=== PATIENT | female | born 2000 | race African-American/Black ===

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

== ENCOUNTER 2022-01-12 17:32 | Emergency (ER) | payer MEDICAID ==
[~2022-01-12] VITALS: Ht 162.6 cm; Wt 66.0 kg
[~2022-01-12 17:32] MED LIST: IBUP-2028 MT
[2022-01-12 17:35] VITALS: BP 105/62
[2022-01-12] MEDS ORDERED: METOCLOPRAMIDE HCL 10MG/2ML VIAL IV STA (18:24)
[2022-01-12] MEDS ORDERED: SODIUM CHLORIDE 0.9% 1,000 ML IV ONE (18:30)
[2022-01-12 19:09] LABS: CHLORIDE 108 mEq/L (98-107)
[2022-01-12 19:11] LABS: BASOPHILS % 0.4 % (0.0-2.0); EOSINOPHILS % 0.7 % (0.0-5.0); HEMATOCRIT. 40.3 % (36.0-48.0); HEMOGLOBIN. 13.3 g/dL (12.0-16.0); LYMPHOCYTES % 10.4 % (20.0-50.0); MEAN CORPUSCULAR HEMOGLOBIN 32.3 pg (28.0-32.0); MEAN CORPUSCULAR VOLUME 97.8 fL (81.0-99.0); MEAN PLATELET VOLUME 8.3 fl (7.4-10.4); MONOCYTES % 5.6 % (2.0-8.0); NEUTROPHILS % 82.9 % (40.0-76.0); PLATELET 255 x1000/uL (130-400); RED BLOOD CELL COUNT 4.12 mill/uL (4.2-5.4); RED CELL DISTRIBUTION WIDTH 12.8 % (11.6-14.6)
== END 2022-01-12 20:30 | disposition home or self-care (01) ==
LOC: ER 17:32
DX: R10.84 Generalized abdominal pain (principal); R11.2 Nausea with vomiting, unspecified
CPT/HCPCS: 36415; 80053; 81025; 83690; 85025; 99283; J2765; J7030